=== PATIENT | female | born 1960 | race Caucasian/White ===

== ENCOUNTER → 2016-10-05 | Outpatient (CLI) | payer BC ==
[~2016-10-05] MED LIST: TYLENOL 325MG325 MG PO
== END ==
LOC: MC.RAD 13:56
DX: Z12.31 Encounter for screening mammogram for malignant neoplasm of breast (principal)

== ENCOUNTER 2017-11-04 17:18 | Emergency (ER) | payer BC ==
[~2017-11-04] VITALS: Ht 165.1 cm; Wt 83.2 kg
[2017-11-04 17:25] VITALS: TEMP 98.5
[2017-11-04] MEDS ORDERED: PREDNISONE20 MG PO (18:06)
[2017-11-04 19:01] VITALS: BP 127/71; PULSE 73
== END 2017-11-04 19:02 | disposition home or self-care (01) ==
LOC: COL.ER 17:18
DX: T63.441A Toxic effect of venom of bees, accidental (unintentional), initial encounter (principal)
CPT/HCPCS: J0171; J1200; J7512

== ENCOUNTER → 2017-11-15 | Outpatient (CLI) | payer BC ==
[~2017-11-15] MED LIST changes: +PREDNISONE20 MG PO
== END ==
LOC: MC.RAD 09:57
DX: Z12.31 Encounter for screening mammogram for malignant neoplasm of breast (principal)

== ENCOUNTER → 2018-12-05 | Outpatient (CLI) | payer BC | LOC: MC.RAD 16:42 | DX: Z12.31 Encounter for screening mammogram for malignant neoplasm of breast (principal) ==

== ENCOUNTER → 2020-07-11 | Outpatient (CLI) | payer BC | LOC: MC.RAD 08:09 | DX: Z12.31 Encounter for screening mammogram for malignant neoplasm of breast (principal) ==

== ENCOUNTER → 2021-10-05 | Outpatient (CLI) | payer BC | LOC: MC.RAD 09-01 09:30 | DX: Z12.31 Encounter for screening mammogram for malignant neoplasm of breast (principal) ==

== ENCOUNTER → 2024-01-26 | Outpatient (CLI) | payer BC | LOC: MC.RAD 13:24 | DX: Z12.31 Encounter for screening mammogram for malignant neoplasm of breast (principal) ==